=== PATIENT | female | born 1985 | race Caucasian/White ===

== ENCOUNTER 2019-06-14 19:47 | Emergency (ER) | payer MEDICAID ==
[~2019-06-14] VITALS: Ht 162.6 cm; Wt 56.0 kg
[2019-06-14 20:24] LABS: URINE HCG NEGATIVE (NEG)
[2019-06-14 20:25] LABS: CLARITY,URINE CLEAR (Clear); COLOR,URINE YELLOW (Yellow); GLUCOSE, URINE NEGATIVE (Neg); KETONES,URINE 15 mg/dl (Neg); LEUKOCYTE ESTERASE ,URINE NEGATIVE (Neg); NITRITES, URINE NEGATIVE (Neg); OCCULT BLOOD,URINE NEGATIVE (Neg); PROTEIN,URINE NEGATIVE (Neg); UA COLLECTION TYPE CLN CATCH MIDSTREAM
[2019-06-14] MEDS ORDERED: morphine 4 MG/ML inj SYRINge IV PRN (20:35)
[2019-06-14] MEDS ORDERED: normal saline 1000ML IV soln IVB ONE (20:35)
--- NOTE | 2019-06-14 21:08 | NUR ---
I USED ULTRASOUND ON THE PATIENT. SHE HAD A VEIN IN HER LEFT FOREARM BUT NOT ABLE TO GET THE NEEDLE INTO THE LUMEN. THEN I TRIED HER LEFT EJ AND ALTHOUGH IT WAS IN THE LUMEN, IT WILL NOT THREAD AND FEELS HARD AND NO BLOOD RETURN AND THEN BLEW WHEN ADM A LITTLE SALINE. I INSTRUCTED THE PATIENT THAT SINCE SHE CAN DRINK WATER, WE WILL TALK TO MD TO ADM IM MEDS AND SHE CAN DRINK HER LIQUIDS. SHE CAN DO THIS, SHE HAS JUST 'WANTED' AN IV FOR EASE. HOWEVER, SINCE SHE HAS NO VASCULARATURE FOR THIS BEING FEASIBLE, SHE OPTED FOR IM/DRINKING
[2019-06-14] MEDS ORDERED: morphine 4 MG/ML inj SYRINge IM ONE ×2 (21:35→22:50)
[2019-06-14] MEDS ORDERED: diphenhydrAMINE 25mg capsule PO ONE (21:40)
[2019-06-14] MEDS ORDERED: ondansetron 4mg rapidly disintigrating tab PO ONE (21:40)
[2019-06-14] MEDS ORDERED: diphenhydrAMINE 50 mg/ml inj IM ONE (21:50)
[2019-06-14 21:57] VITALS: BP 104/64
[2019-06-14 22:22] LABS: BASOPHILS % (AUTO) 0.4 % (0-1); EOSINOPHILS % (AUTO) 0.4 % (0-6); HEMATOCRIT 35.6 % (35.0-45.0); HEMOGLOBIN 11.4 g/dl (12.0-16.0); LYMPHOCYTES # (AUTO) 1.7 X10'3 (1.1-4.8); LYMPHOCYTES % (AUTO) 19.6 % (21-51); MEAN CORPUSCULAR HEMOGLOBIN 24.1 PG (27.0-31.0); MEAN CORPUSCULAR VOLUME 75.4 FL (78-98); MEAN PLATELET VOLUME 8.3 FL (7.4-10.4); MONOCYTES # (AUTO) 0.4 X10'3 (0-0.9); MONOCYTES % (AUTO) 4.6 % (2-12); NEUTROPHILS # (AUTO) 6.5 X10'3 (1.8-7.7); PLATELET COUNT 238 X10'3 (140-440); RED BLOOD COUNT 4.72 X10'6 (4.20-5.60); RED CELL DISTRIBUTION WIDTH 15.4 % (11.5-14.5); WHITE BLOOD COUNT 8.7 X10'3 (4.5-11.0)
[2019-06-14 22:34] LABS: ALANINE AMINOTRANSFERASE 23 U/L (12-78); ALBUMIN 3.8 G/DL (3.4-5.0); ALKALINE PHOSPHATASE 56 IU/L (46-116); ANION GAP 8 (8-16); ASPARTATE AMINO TRANSFERASE 17 U/L (10-37); BILIRUBIN,TOTAL 0.4 MG/DL (0.1-1.0); BLOOD UREA NITROGEN 11 MG/DL (7-18); BUN/CREATININE RATIO 16.9 (6.6-38.0); CALCIUM 9.1 MG/DL (8.5-10.1); CHLORIDE 107 MMOL/L (99-107); CREATININE 0.65 MG/DL (0.40-0.90); GLUCOSE 80 MG/DL (70-104); LIPASE 84 U/L (73-393); POTASSIUM 3.8 MMOL/L (3.5-5.1); SODIUM 143 MMOL/L (135-145); TOTAL CARBON DIOXIDE 28.1 MMOL/L (24-32); TOTAL PROTEIN 7.5 G/DL (6.4-8.2); eGFR > 90 ML/MIN
== END 2019-06-14 23:02 | disposition home or self-care (01) ==
LOC: ER 19:48
DX: R10.2 Pelvic and perineal pain (principal); R11.2 Nausea with vomiting, unspecified; R10.32 Left lower quadrant pain; Z90.49 Acquired absence of other specified parts of digestive tract; Z98.890 Other specified postprocedural states; Z88.6 Allergy status to analgesic agent; Z88.8 Allergy status to other drugs, medicaments and biological substances; Z90.710 Acquired absence of both cervix and uterus
CPT/HCPCS: 36415; 74018; 76856; 80053; 81003; 81025; 83690; 85025; 96372; 99284; J1200; J2270; Q0163